=== PATIENT | female | born 2000 ===

== ENCOUNTER 2021-08-04 22:29 | Emergency (ER) | payer SELFPAY ==
[2021-08-05] MEDS ORDERED: Acetaminophen 325 MG Tab PO ONE (00:09)
[2021-08-05] MEDS ORDERED: Acetaminophen 325 MG Tab ONE (00:09)
== END 2021-08-05 00:55 | disposition home or self-care (01) ==
LOC: DL.ED 22:29
DX: S00.03XA Contusion of scalp, initial encounter (principal); S00.11XA Contusion of right eyelid and periocular area, initial encounter; Y04.0XXA Assault by unarmed brawl or fight, initial encounter
CPT/HCPCS: 70486; 81025; 99284; A9270

== ENCOUNTER 2022-03-23 18:58 | Emergency (ER) | payer BC ==
[2022-03-23] MEDS ORDERED: Ondansetron 4 MG Tab.DIS PO ONE (18:59)
[2022-03-23] MEDS ORDERED: Sodium Chloride 0.9% 1,000 ML IV ONE (19:15)
[2022-03-23] MEDS ORDERED: Ondansetron 4 MG/2 ML SDV IVPUSH ONE (19:15)
[2022-03-23 19:50] LABS: ANION GAP 15.9 mEq/L (7-13)
[2022-03-23 21:29] LABS: AMPHETAMINES,URINE NEGATIVE (NEGATIVE); BARBITURATES,URINE NEGATIVE (NEGATIVE); BENZODIAZEPINE,URINE NEGATIVE (NEGATIVE); MDMA (ECSTASY), URINE NEGATIVE (NEGATIVE); METHADONE,URINE NEGATIVE (NEGATIVE); METHAMPHETAMINES,URINE NEGATIVE (NEGATIVE); OPIATES,URINE NEGATIVE (NEGATIVE); OXYCODONE,URINE NEGATIVE (NEGATIVE); PHENCYCLIDINE,URINE NEGATIVE (NEGATIVE); TCA,URINE NEGATIVE (NEGATIVE)
[2022-03-23] MEDS ORDERED: Ondansetron 4 MG Tab.DIS ONE (21:47)
== END 2022-03-23 21:58 | disposition home or self-care (01) ==
LOC: DL.ED 18:58
DX: K52.9 Noninfective gastroenteritis and colitis, unspecified (principal); F12.90 Cannabis use, unspecified, uncomplicated; R11.2 Nausea with vomiting, unspecified; Z20.822 Contact with and (suspected) exposure to COVID-19
CPT/HCPCS: 36415; 80053; 80305; 81001; 81025; 85025; 87086; 87635; 96361; 96374; 99284; A9270; J2405; J7030; 99283; U0002